=== PATIENT | male | born 1980 | race American Indian/Alaskan Native ===

== ENCOUNTER 2021-07-15 11:08 | Emergency (ER) | payer MEDICAID ==
[2021-07-15 11:25] VITALS: BP 125/86; PULSE 102
[2021-07-15] MEDS ORDERED: cefTRIAXone 1 GM Vial IM ONE (11:57)
[2021-07-15] MEDS ORDERED: Lidocaine 1% 30 ML SDV INJECT ONE (12:02)
--- NOTE | 2021-07-15 12:16 | EDM.PDOC ---
ED HPI GENERAL MEDICAL PROBLEM - General Chief Complaint: Skin Complaint Stated Complaint: sore on head Time Seen by Provider: 07/15/21 12:00 Source of Information: Reports: Patient History Limitations: Reports: No Limitations - History of Present Illness INITIAL COMMENTS - FREE TEXT/NARRATIVE: Juan Carlos is a 41 year old male presents to ER with complaints of infection to a wound to the back of his head. He states he hit the bottom of a cupboard about 3 weeks ago and has had increased pain and swelling the last week but today the pain is radiating down his neck and to his left ear. No fevers. Denies sinus congestion. Has not noted any drainage from the wound. States has been scabbed over for weeks. 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 (see below) Other Treatments WRESTLING COACH: tried ibuprofen last night but states it didn't help Left Posterior Head Pain Score (Numeric/FACES): 8 - Related Data Allergies Allergy/AdvReac Type Severity Reaction Status Date / Time adhesive Allergy Rash Verified 07/15/21 11:09 epinephrine Allergy Hives Verified 07/15/21 11:09 metformin Allergy Diarrhea Verified 07/15/21 11:09 venom-honey bee Allergy Anaphylactic Verified 07/15/21 11:09 [bee venom (honey bee)] Shock Home Meds: Home Meds Albuterol Sulfate [Proair Hfa] 2 inhalation INH Q6H PRN 12/14/19 [History] Benztropine [Cogentin] 0.5 mg PO BID 12/14/19 [History] Cetirizine [ZyrTEC] 10 mg PO DAILY 12/14/19 [History] Pantoprazole [ProTONIX] 40 mg PO DAILY 12/14/19 [History] Prazosin [Minpress] 4 mg PO BEDTIME 12/14/19 [History] Sertraline [Zoloft] 200 mg PO DAILY 12/14/19 [History] busPIRone [Buspar] 20 mg PO TID 12/14/19 [History] Clindamycin HCl 300 mg PO QID #28 capsule 07/15/21 [Rx] Insulin Glarg,Human.Rec.Analog [Lantus] 22 unit SUBCUT BEDTIME 07/15/21 [History] Insulin Lispro [Insulin Lispro Kwikpen U-100] 17 unit SQ TID 07/15/21 [History] Paliperidone Palmitate [Invega Sustenna] 117 mg IM ASDIRECTED 07/15/21 [History] Past Medical History HEENT History: Reports: Impaired Vision Cardiovascular History: Reports: None Respiratory History: Reports: SOB Gastrointestinal History: Reports: GERD, GI Bleed Genitourinary History: Reports: None Musculoskeletal History: Reports: Arthritis, Back Pain, Chronic Neurological History: Reports: None Psychiatric History: Reports: Depression, PTSD, Schizophrenia Endocrine/Metabolic History: Reports: Diabetes, Type II, Obesity/BMI 30+ Hematologic History: Reports: None Immunologic History: Reports: None Oncologic (Cancer) History: Reports: None Dermatologic History: Reports: Psoriasis - Infectious Disease History Infectious Disease History: Reports: Chicken Pox - Past Surgical History Head Surgeries/Procedures: Reports: None HEENT Surgical History: Reports: None Cardiovascular Surgical History: Reports: None Respiratory Surgical History: Reports: None GI Surgical History: Reports: Cholecystectomy Male Surgical History: Reports: Circumcision Endocrine Surgical History: Reports: None Neurological Surgical History: Reports: Lumbar Spine Musculoskeletal Surgical History: Reports: Other (See Below) Other Musculoskeletal Surgeries/Procedures:: back, knee, wrist 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 knee surg (R) Oncologic Surgical History: Reports: None Dermatological Surgical History: Reports: None Social & Family History - Family History Family Medical History: No Pertinent Family History - Tobacco Use Tobacco Use Status *Q: Current Every Day Tobacco User Years of Tobacco use: 29 Packs/Tins Daily: 1 - Caffeine Use Caffeine Use: Reports: Coffee, Soda Caffeine Use Comment: coffee- 2 cups. soda 40 oz daily ED ROS GENERAL - Review of Systems Review Of Systems: See Below Constitutional: Denies: Fever, Chills, Malaise, Weakness, Fatigue HEENT: Reports: Ear Pain. Denies: Nose Pain, Sinus Problem, Throat Pain Respiratory: Denies: Shortness of Breath, Cough Cardiovascular: Denies: Chest Pain Endocrine: Denies: Fatigue GI/Abdominal: Denies: Abdominal Pain, Nausea, Vomiting : Reports: No Symptoms Musculoskeletal: Reports: No Symptoms Skin: Reports: Erythema, Wound Neurological: Reports: Headache ED EXAM, SKIN/RASH Exam: See Below Exam Limited By: No Limitations General Appearance: Alert, WD/WN, No Apparent Distress Ears: Normal External Exam, Normal TMs Nose: Normal Inspection, Normal Mucosa, No Blood Throat/Mouth: Normal Inspection, Normal Oropharynx Head: Normocephalic, Other (has raised red, warm 2 cm area to the posterior scalp that has a large scab over it. Tender. Mild posterior cervical lymphadenopathy.) Neck: Normal Inspection, Supple, Lymphadenopathy (L), Lymphadenopathy (R) Respiratory/Chest: No Respiratory Distress, Lungs Clear, Normal Breath Sounds Cardiovascular: Regular Rate, Rhythm Extremities: Normal Inspection, No Pedal Edema Neurological: Alert, Oriented Skin: Warm, Dry, Wound/Incision Location, Skin: Head Associated features: Crusting Course - Vital Signs Last Recorded V/S: Last Vital Signs Temp 97.9 F 07/15/21 11:10 Pulse 102 H 07/15/21 11:10 Resp 16 07/15/21 11:10 BP 125/86 07/15/21 11:10 Pulse Ox 97 07/15/21 11:10 - Orders/Labs/Meds Meds: Medications Discontinued Medications Generic Name Dose Route Start Last Admin Trade Name Monika PRN Reason Stop Dose Admin Ceftriaxone Sodium 1 gm 07/15/21 11:57 07/15/21 12:09 Ceftriaxone 1 Gm Vial IM 07/15/21 11:58 1 gm ONETIME ONE Administration Lidocaine HCl 0 ml 07/15/21 12:02 07/15/21 12:09 Lidocaine 1% 30 Ml Sdv INJECT 07/15/21 12:03 10 ml ONETIME ONE Administration Lidocaine HCl Confirm 07/15/21 12:32 07/15/21 12:18 Lidocaine 1% 5 Ml Sdv Administered 07/15/21 12:33 Not Given Dose 5 ml .ROUTE .STK-MED ONE Departure - Departure Time of Disposition: 12:14 Disposition: Home, Self-Care 01 Condition: Good Clinical Impression: Abscess - Discharge Information *PRESCRIPTION DRUG MONITORING PROGRAM REVIEWED*: No *COPY OF PRESCRIPTION DRUG MONITORING REPORT IN PATIENT DEJON: No Prescriptions: Clindamycin HCl 300 mg PO QID #28 capsule Instructions: Skin Abscess Referrals: PCP,None [Primary Care Provider] - Forms: ED Department Discharge Additional Instructions: 1. Keep skin clean and dry 2. Start clindamycin 300 mg four times a day for 7 days 3. Follow up if any persisting concerns. Sepsis Event Note (ED) - Evaluation Sepsis Screening Result: No Definite Risk - Focused Exam Vital Signs: Vital Signs Temp Pulse Resp BP Pulse Ox 07/15/21 11:10 97.9 F 102 H 16 125/86 97
== END 2021-07-15 12:44 | disposition home or self-care (01) ==
LOC: CC.ED 11:08
DX: L02.811 Cutaneous abscess of head [any part, except face] (principal); R59.0 Localized enlarged lymph nodes; E11.9 Type 2 diabetes mellitus without complications; E66.9 Obesity, unspecified; K21.9 Gastro-esophageal reflux disease without esophagitis; Z91.030 Bee allergy status; Z79.4 Long term (current) use of insulin; Z88.8 Allergy status to other drugs, medicaments and biological substances; Z72.0 Tobacco use; Z88.4 Allergy status to anesthetic agent; Z79.899 Other long term (current) drug therapy
CPT/HCPCS: 96372; 99282; J0696